=== PATIENT | female | born 1970 | race Caucasian/White ===

== ENCOUNTER → 2018-03-10 | Outpatient (CLI) | payer OTHER ==
[2014-11-01 08:44] VITALS: BMI 28.1
[~2018-03-10] MED LIST: AMI25 PO; ASCO-182 PO; CA C1TAB11 PO; CEP500 PO; CHOL100058 PO; FLAX340P2 PO; FLUT16SP20 NS; FOLI-68 PO; GARL1CAP15 PO; IBUP1TAB90 PO; KET10 PO; MONT10TA PO; MULT1TAB54 PO; OMEP10CA40 PO; PER PO; SULF-198 PO; TAMO20TA24 PO; VITA-195 PO; VITAMINS; [UNRECOGNIZED DRUG - OTHER]
[2018-03-10 17:56] LABS: PLATELET COUNT, AUTOMATED 292 K/uL (150-450)
== END ==
LOC: LAB 17:18
PROVIDERS: ATTEND Internal Medicine Medical Oncology
DX: C50.919 Malignant neoplasm of unspecified site of unspecified female breast (principal)
CPT/HCPCS: 36415; 82040; 82247; 82310; 82374; 82435; 82565; 82947; 84075; 84132; 84155; 84295; 84450; 84460; 84520; 85025

== ENCOUNTER 2018-03-16 13:55 | Outpatient (RCR) | payer OTHER ==
[2014-11-01 08:44] VITALS: Ht 162 cm; Wt 60.7 kg
[2018-01-05 09:32] VITALS: BP 111/70
--- NOTE | 2018-01-05 19:39 | ONCOLOGY HISTORY AND PHYSICAL ---
REFERRING PROVIDER Dr. Fontenot REASON FOR CONSULTATION Breast cancer. CHIEF COMPLAINT Patient feels well today with the exception of a burn from a heating pad over her reconstructed right breast. HISTORY OF PRESENT ILLNESS Ritu is a very pleasant 47-year-old female with a history of transvaginal hysterectomy performed in October 2014, as well as several other surgeries including vein stripping, cholecystectomy, and appendectomy. She presented in September to Dr. Lyon with concerns for a one week history of a palpable lump in the right breast. Subsequent breast imaging included mammogram which revealed an irregular spiculated mass with calcifications, and ultrasound that measured this lesion to be 1.3 cm. She subsequently underwent a biopsy of the right breast mass, which revealed grade 2 invasive ductal carcinoma. She subsequently underwent breast MRI that showed the right breast mass, no concern for lymphadenopathy, and no concerns in the contralateral breast. Her last mammogram prior to this had been performed in July of 2014. She was evaluated by Dr. Fontenot as well as Dr. Enciso, and the decision was made to move forward with bilateral mastectomies and implant reconstruction. Her surgery took place on November 27, at which time she underwent nipple-sparing mastectomy on both breasts. 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 The tumor itself was 1.6 cm. Invasive tumor and DCIS were 2 mm from the deep surgical margin, and 8 mm from the anterior surgical margin. There was evidence of biopsy site changes. One right axillary lymph node (sentinel lymph node) was benign. Prognostic markers have revealed positivity for the estrogen and progesterone receptors, and FISH analysis for HER2 was negative. The patient had been recovering well from her surgery, but unfortunately she reports that she had fallen asleep while using a heating pad on the right reconstructed breast, lateral chest, and she ended up having a skin burn that has required ongoing surgical attention. The patient is here today with her significant other to discuss the need for adjuvant therapies. She otherwise feels well. She relates her surgical history to me. She also states that she tends to be a very "holistic" person, and she is not particularly enthusiastic about taking any kind of medication. She has been doing some research on tamoxifen, as her ovaries were left at the time of her prior hysterectomy. She is concerned about many of the things that she has read about regarding tamoxifen, including the risk of developing cancer as a result of its use. PAST MEDICAL HISTORY 1. Severe gluten intolerance. 2. History of varicose veins. PAST SURGICAL HISTORY 1. Status post appendectomy in 1994. 2. Status post cholecystectomy in 1992. 3. Status post abdominal surgery in 2000 for bowel obstruction. 4. Status post total hysterectomy in 2014. She has both ovaries at this time. 5. Status post left knee surgery in 1984. CURRENT MEDICATIONS 1. Vitamin C. 2. Multivitamin. 3. Flaxseed. 4. Egg shells. ALLERGIES GLUTEN which causes abdominal cramping and diarrhea. She has no known allergies to medication. SOCIAL HISTORY Patient does not smoke cigarettes. There is no history of alcohol abuse. FAMILY HISTORY There is no known history of breast or ovarian cancer in the family. She reports that an uncle had been diagnosed with cancer, but that this was "environmental" in nature. VITAL SIGNS Temperature is 97.0, blood pressure 111/70, heart rate is 76, respirations 16, oxygen saturation is 93% on room air. Weight is 60.8 kg. PHYSICAL EXAMINATION GENERAL: Patient is alert and oriented times three, in no apparent distress sitting in the exam room chair. She is interactive and quite pleasant. HEENT: Exam reveals anicteric sclerae. NEUROLOGIC: Exam is grossly nonfocal and her gait is normal. EXTREMITIES: Exam reveals no edema, clubbing or cyanosis. There is no erythema or tenderness to palpation of the extremities. BREASTS: Exam is deferred today. LABORATORIES, IMAGING, AND PATHOLOGY Reviewed per the [facility] and outside records. ASSESSMENT AND PLAN Stage IA ER/ND positive invasive ductal carcinoma of the right breast. I had a lengthy and in-depth discussion with Ms. Ascencio today. We spent time discussing her presenting symptoms, as well as her surgical treatment to date. She is now status post bilateral mastectomies, and with the exception of her unfortunate recent burn due to a heating pad, she seems to be doing remarkably well. We discussed the nature of her breast cancer, including the fact that this is a grade 3 tumor, her prognostic markers, and her surgical staging. She appears to have stage IA disease. We began our discussion about adjuvant therapy by addressing her concerns about tamoxifen, as she has done quite a bit of research at home. We spent a great deal of time discussing the nature of the medication, its mechanism of action, and the rationale for its use in terms of reducing risk of breast cancer recurrence. We discussed that it could potentially increase the risk of thrombosis, as well as endometrial cancer. Because she has undergone hysterectomy, obviously the latter of these two would not be a concern, which we discussed in detail today. We also discussed side effects in addition to those noted above. We moved on to discuss that she would likely need to be on tamoxifen for a period of five years. Because she is particularly apprehensive about taking any kind of medicine, she would like to sit down with Diana Soares, nurse practitioner, for treatment education and learn more about the tamoxifen itself. I think this is quite reasonable. She does seem, at least later in our visit today, to have more of an open mind to considering adjuvant endocrine therapy. We moved on to review some data from [employer]. And we also discussed the potential utility of having her undergo an Oncotype DX study. We discussed again the rational for its use. With known lymph node negative with a high grade, but less than 2 cm primary, I do think that Oncotype DX testing would be reasonable. The patient has no intention whatsoever of receiving chemotherapy, and she reiterated this several times today. For this reason, we have decided together to hold off on Oncotype DX testing. Finally today, we reviewed the fact that she was diagnosed with this breast cancer at a young age, but she does not have a striking family history for cancer in general. I have recommended that she visit with a genetic counselor, and a referral will be made today. I will plan to see her back in about one month's time. Her next followup here will be with Diana Soares for her treatment education. I spent a total of 60 minutes of time face to face with the patient today, and 55 minutes of this was spent in direct counseling and coordination of care. SELWYN
[2018-01-11 16:03] VITALS: BP 130/77
--- NOTE | 2018-01-11 17:09 | ONC Progress Note - NP.Halsey ---
Patient History Date of Service Jan 11, 2018 Reason For Visit/HPI Patient is seen in the clinic today with her spouse for education prior to starting tamoxifen. Patient has picked up the prescription at the pharmacy and has it with her today. Patient is being treated for her breast cancer status post bi lateral reconstructive surgery. Patient presents today with eschar on the right breast status post use of a heating pad. In addition she shares that the left breast lateral to the nipple area has opened up and is weeping a creamy discolored discharge. She reports that this happened just today. She has taken a picture of both areas and has sent them via [employer] to Dr. Cook's office. She has not heard back from them at this time. I did step out of the exam room and called Dr. Mandujano office. They would like to see patient on at her scheduled time and plan to go and take out both implants and probably replace with an front sight attacher. Depending on the weeping wound they may start her on antibiotic therapy. I do not feel that patient has fever or chills and at this time needs to be on antibiotics so I did not start them. Did complete education regarding tamoxifen therapy. Written information regarding side effects was reviewed today. The main side effects include hot flashes, weight gain or weight loss, possible change in cholesterol fatigue, low risk for blood clots and low risk for a secondary cancer. It is recommended that patient have pelvic exams yearly. If she experienced any warm spot suggestive of a blood clot she is to be seen in the emergency room. Patient reports that she does smoke marijuana and questions if there is a contraindication. It does appear that they both use the same receptors and so the discussion of decreased efficacy of tamoxifen with the use of marijuana was reviewed. I did share that tamoxifen does not cause a decrease in her bone density and therefore there is no need to monitor at this time for osteoporosis. Patient has had prior varicose veins. She understands that this may slightly increase her risk of a clotting and verbalized what to look for. If she developed any type of a rash she understands that she would stop the medication and if an allergic reaction occurs that she will be seen in the emergency room but would start with Benadryl at home. Patient verbalizes understanding. Patient understands that she will take tamoxifen for a period of 5 years. Patient is postmenopausal and has had a hysterectomy so could qualify for other AI therapy. This was reviewed today. The education was completed however patient and spouse were both slightly distracted due to the breast situation. Patient did report that if she has further questions she will call. She will not start the tamoxifen until she completes her next surgical procedure. Problem List (1) ER+ ME+ carcinoma of breast (2) History of adenocarcinoma of breast (3) Acquired absence of bilateral breasts and nipples (4) Stage 1 carcinoma of breast, ER+ Oncology History Stage 1A ER/ME positive invasive ductal carcinoma of the right breast. Lymph node negative with a high grade, but less than 2 cm primary. Patient is status post bilateral mastectomy with breast reconstruction. This is been followed by a complication of burn on the right breast after use of a heating pad and opening of the left breast without known cause. Patient will probably have implants removed and expanders placed. Patient will start tamoxifen therapy 20 mg by mouth daily 5 years. Psychosocial History Social History Patient is Alcohol History She denies abuse Recreational Drug History She does use marijuana Medications and Allergies Reported Medications Tamoxifen Citrate (TAMOXIFEN CITRATE) 20 Mg Tablet, 20 MG PO DAILY 01/11/18 [Ground Egg Shells] No Conflict Check, 0.5 TSP DAILY for CALCIUM 01/05/18 Ibuprofen/Diphenhydramine Cit (ADVIL PM CAPLET) 1 Each Tablet, 1 EACH PO QHS 10/25/14 Multivitamin (MULTI-VITAMIN DAILY) 1 Each Tablet, 1 EACH PO 10/25/14 Ascorbic Acid (VITAMIN C) 500 Mg Tablet, 500 MG PO 10/25/14 Discontinued Reported Medications Flaxseed (FLAXSEED) 340 Gm Powder, 340 GM PO 01/05/18 Ca Carbonate/Vitamin D3/Vit K (VIACTIV SOFT CHEW TABLET) 1 Each Tab.chew, 1 EACH PO, TAB.CHEW 10/25/14 Cholecalciferol (Vitamin D3) (VITAMIN D) 1,000 Unit Capsule, 1000 UNIT PO, CAPSULE 10/25/14 Vitamin E Mixed (VITAMIN E) 1,000 Unit Capsule, 1000 UNIT PO, CAPSULE 10/25/14 Folic Acid (FOLIC ACID) 1 Mg Tablet, 1 MG PO QDAY, TAB 10/25/14 Garlic (GARLIC) 1 Each Capsule, 1 EACH PO, CAPSULE 10/25/14 Montelukast Sodium (SINGULAIR) 10 Mg Tablet, 1 TAB PO QDAY TAKE ONE TABLET BY MOUTH EVERY DAY 10/25/14 Fluticasone Propionate (FLONASE) 16 Gm [place].susp, 2 SPRAY NS DAILY 10/25/14 Discontinued Scripts Sulfamethoxazole/Trimet 800-160 Mg Tab (BACTRIM DS TABLET) 1 Each Tablet, 1 TAB PO Q12H Y for if home with catheter take, #10 CAPSULE Prov:JOSE MIGUEL SOUZA MD 11/01/14 Oxycodone/Acetaminophen (OXYCODONE/ACETAMINOPHEN 5MG/325 MG) 1 Tab Tab, 1-2 TAB PO Q4H Y for PAIN, #30 TAB 0 Refills Prov:JOSE MIGUEL SOUZA MD 11/01/14 Allergies: Coded Allergies: gluten (Verified Allergy, Severe, ABDOMINAL PAIN, VOMITING AND DIARRHEA, ) latex (Verified Allergy, Mild, HIVES, 10/31/14) Uncoded Allergies: OATS (Allergy, Severe, VOMITTING, DIARRHEA, ABD CRAMPING, 10/25/14) QUINOA (Allergy, Severe, VOMITING,DIARRHEA AND ABD CRAMPING, 10/25/14) ALL STRONG PAIN MEDS (Adverse Reaction, Mild, CAUSING SEVERE ABD PAIN, 09/04) PATIENT REPORTS REACTION TO INGREDIENTS IN ORAL PAIN PILLS. Review of System/Physical Exam Review of Systems All Systems Reviewed/Normal: Yes, Except as Noted Psychiatric: Anxiety Skin: Positive for Other (see above bilateral breast reconstruction with evidence of eschar on the right breast and opened wound with discolored weeping on the left breast) Physical Exam Vital Signs Temperature: 97.0 Pulse: 79 BP Systolic: 130 BP Diastolic: 77 Respiratory Rate: 16 O2 SAT: 94 O2 Delivery: Height (inches) 63.78 Weight lb: 164 Weight oz: Weight Kg (Jasvir): Pain: 4 ECOG Score: 0 General: Stable Psychiatric: Mood appears normal, Affect appears normal, Other (patient is alert and oriented 3.) Skin: Other (left breast has approximately 5 cm split open wound with creamy discharge, no erythema surrounding the area. Right breast with a 3 cm round eschar status post burn from a heating pad Hirsch to be well approximated and is not draining.) Assessment and Plan Assessment & Plan Stage IA ER/ME positive invasive ductal carcinoma of the right breast. Patient is status post bilateral mastectomy with breast reconstructive surgery. She presents today with a noted burn on the right breast from a heating pad and an open wound on the left breast. Dr. Cook's office was contacted and patient will have implants removed this and possible breast expanders placed allowing the area to heal. Education regarding tamoxifen use was reviewed today and written information was given to the patient for further review. Patient will not start tamoxifen until after her surgical procedure. I believe she was comfortable with the education and taking the medication with less reservation. She will take it for up to 5 years at this time. Patient will have a CBC and a CMP in 2 months when she follows with Dr. Gonzalez. I personally spent a total of 30 minutes. Of that 30 minutes was counseling/ coordination of patient's care. See my note above for details. CONNOR HUGHES TIPPING MACHINE OPERATOR [employer], ONC Jan 11, 2018 17:09
[~2018-03-16] VITALS: Ht 162 cm; Wt 60.7 kg
[2018-03-16 14:11] VITALS: BP 121/79
[2018-03-16] MEDS ORDERED: GARL1TAB9 PO (14:14)
[2018-03-16] MEDS ORDERED: VITA-175 PO (14:14)
--- NOTE | 2018-03-16 20:07 | ONCOLOGY FOLLOW UP NOTE ---
EVENT DATE: March 16, 2018 REASON FOR FOLLOWUP Stage IA ER positive right breast cancer. CHIEF COMPLAINT Fatigue. HISTORY OF PRESENT ILLNESS Ritu returns to clinic for a follow-up visit today. She reports that she is feeling pretty good today, all things considered. She relates her recent surgical activity. She had initially presented with concerns for a burn on her breast from a heating pad, and she had called to report that she had required surgical intervention. It turns out that she actually had a dehiscence and had to have her implants removed. These were replaced with tissue expanders, reportedly, but there again was reported dehiscence, and she opted to have the tissue expanders removed. She has no plans for further surgical intervention. Today, she does report some ongoing fatigue. She has had no significant pain. She denies shortness of breath and cough. Her appetite has been pretty good. She reports no abdominal pain or changes in bowels or bladder habits. She has not yet started tamoxifen, but she intends to do so soon. PAST MEDICAL HISTORY 1. Severe gluten intolerance. 2. History of varicose veins. PAST SURGICAL HISTORY 1. Status post appendectomy in 1994. 2. Status post cholecystectomy in 1992. 3. Status post abdominal surgery in 2000 for bowel obstruction. 4. Status post total hysterectomy in 2014. She has both ovaries at this time. 5. Status post left knee surgery in 1984. CURRENT MEDICATIONS 1. Vitamin C. 2. Multivitamin. 3. Flaxseed. 4. Egg shells. ALLERGIES GLUTEN which causes abdominal cramping and diarrhea. She has no known allergies to medication. SOCIAL HISTORY Patient does not smoke cigarettes. There is no history of alcohol abuse. FAMILY HISTORY There is no known history of breast or ovarian cancer in the family. She reports that an uncle had been diagnosed with cancer, but that this was "environmental" in nature. VITAL SIGNS Temperature is 97.4, blood pressure 121/79, heart rate is 68, respirations 16, oxygen saturation is 97% on room air. Weight is 60.7 kg. PHYSICAL EXAMINATION GENERAL: Patient is alert and oriented times three, in no apparent distress sitting in the exam room chair. She appears healthy. HEENT: Exam reveals anicteric sclerae. NEUROLOGIC: Exam is grossly nonfocal and her gait is normal. EXTREMITIES: Exam reveals no edema, clubbing or cyanosis. There is no erythema or tenderness to palpation of the extremities. SKIN: Exam reveals no concerning rash or lesion on cursory exam. LABORATORY STUDIES Reviewed per the [facility] record. ASSESSMENT AND PLAN Stage IA ER positive right breast cancer. I had a good visit with Ritu today. We reviewed her unfortunate surgical complications recently, and the fact that she is not planning on having any additional surgical intervention. She remains without breast implants or tissue expanders in place. We spent some time again today discussing tamoxifen, and its use in the adjuvant setting. She does have the prescription at home. As discussed, there is no a particular dalton to have her start with the medication, given recent events, but it would be chong for her to consider beginning the tamoxifen in the next month or so. She reports that she will likely begin in the next several days. We again reviewed some common side effects, and that I would want to see her back in clinic again in the next two months or so to see how she is doing in general, and to review her situation. She agrees to this plan. SELWYN
== END 2018-04-04 ==
LOC: ONC 13:55
PROVIDERS: ATTEND Internal Medicine Medical Oncology
DX: C50.911 Malignant neoplasm of unspecified site of right female breast (principal); T21.01XA Burn of unspecified degree of chest wall, initial encounter; Z17.0 Estrogen receptor positive status [ER+]; Z79.899 Other long term (current) drug therapy
CPT/HCPCS: 99202; 99212

== ENCOUNTER 2018-05-10 13:55 | Outpatient (RCR) | payer OTHER ==
[2014-11-01 08:44] VITALS: Wt 61.9 kg
[~2018-05-10 13:55] MED LIST changes: +GARL1TAB9 PO; +VITA-175 PO
[2018-05-10 14:03] VITALS: BP 134/78
[2018-05-10 14:45] LABS: PLATELET COUNT, AUTOMATED 248 K/uL (150-450)
--- NOTE | 2018-05-11 09:34 | ONCOLOGY FOLLOW UP NOTE ---
EVENT DATE: May 10, 2018 REASON FOR FOLLOWUP Stage 1A ER positive right breast cancer. CHIEF COMPLAINT Hot flashes. HISTORY OF PRESENT ILLNESS Ritu returns to the clinic for a followup visit today. She states that she is feeling pretty good in general. She started taking tamoxifen daily on March 16. She has noticed some very modest flashes that pop up from time to time but these have not been particularly problematic. She is sleeping well. She reports no new pain. She has had no skin changes and she has noticed no lumps or bumps under the arms. She has had a pretty good appetite. She has has no changes in bowel habits. 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 This is going well. REVIEW OF SYSTEMS Otherwise negative and all systems were reviewed. PAST MEDICAL HISTORY 1. Severe gluten intolerance. 2. History of varicose veins. PAST SURGICAL HISTORY 1. Status post appendectomy in 1994. 2. Status post cholecystectomy in 1992. 3. Status post abdominal surgery in 2000 for bowel obstruction. 4. Status post total hysterectomy in 2014. She has both ovaries at this time. 5. Status post left knee surgery in 1984. CURRENT MEDICATIONS 1. Vitamin C. 2. Multivitamin. 3. Flaxseed. 4. Egg shells. ALLERGIES GLUTEN which causes abdominal cramping and diarrhea. She has no known allergies to medication. SOCIAL HISTORY Patient does not smoke cigarettes. There is no history of alcohol abuse. FAMILY HISTORY There is no known history of breast or ovarian cancer in the family. She reports that an uncle had been diagnosed with cancer, but that this was "environmental" in nature. PHYSICAL EXAM VITAL SIGNS: Temperature 97.6, blood pressure 134/78, heart rate is 67, respirations 16, oxygen saturation is 97% on room air, weight is 61.9 kg. GENERAL: Patient is alert and oriented x3, no apparent distress, sitting in the exam room chair. She appears healthy. She is in good spirits and quite interactive. HEENT: Anicteric sclerae. NEUROLOGIC: Grossly nonfocal and gait is normal. LABORATORY STUDIES Laboratory studies from February including CBC and CMP were reviewed. These were unremarkable. ASSESSMENT AND PLAN Stage 1A ER positive right breast cancer. Ritu is doing remarkably well. She has started on adjuvant tamoxifen and has now taken about two months' worth of therapy. She has had minimal toxicity from the tamoxifen itself with hot flashes being the only notable side effect. These have been quite tolerable. We spent time discussing our strategy for ongoing followup. I would like to see her quarterly for the coming year to see how she is doing with the tamoxifen. She does have another surgical visit scheduled in December. She plans to have a breast exam at that time. We will continue breast exams here from that point forward. She had questions about her prior labs and these were reviewed with her today. She also had questions about cancer specific laboratory studies in the future. I have recommended against checking routine breast cancer tumor markers in the adjuvant setting and we discussed the rationale for this recommendation. She understands. I will see her back in three months after repeat labs or sooner if there are questions or concerns. SELWYN
== END 2018-05-11 11:20 | disposition home or self-care (01) ==
LOC: ONC 13:55
PROVIDERS: ATTEND Internal Medicine Medical Oncology
DX: C50.911 Malignant neoplasm of unspecified site of right female breast (principal); Z17.0 Estrogen receptor positive status [ER+]; Z79.810 Long term (current) use of selective estrogen receptor modulators (SERMs)
CPT/HCPCS: 82040; 82247; 82310; 82374; 82435; 82565; 82947; 84075; 84132; 84155; 84295; 84450; 84460; 84520; 85025; 99212

== ENCOUNTER → 2018-07-20 | Outpatient (CLI) | payer OTHER ==
[2014-11-01 08:44] VITALS: BMI 28.1
[2018-07-20 17:58] LABS: PLATELET COUNT, AUTOMATED 317 K/uL (150-450)
== END ==
LOC: LAB 17:25
PROVIDERS: ATTEND Internal Medicine Medical Oncology
DX: C50.919 Malignant neoplasm of unspecified site of unspecified female breast (principal)
CPT/HCPCS: 36415; 82040; 82247; 82310; 82374; 82435; 82565; 82947; 84075; 84132; 84155; 84295; 84450; 84460; 84520; 85025

== ENCOUNTER 2018-07-27 08:44 | Outpatient (RCR) | payer OTHER ==
[2014-11-01 08:44] VITALS: Wt 62.0 kg
[2018-07-27 13:44] VITALS: BP 141/75
--- NOTE | 2018-07-27 19:30 | ONCOLOGY FOLLOW UP NOTE ---
EVENT DATE: July 27, 2018 REASON FOR FOLLOWUP Stage 1A ER positive right breast cancer, ongoing adjuvant tamoxifen. CHIEF COMPLAINT Pelvic pressure. HISTORY OF PRESENT ILLNESS Ritu returns to the clinic for a followup visit today. She reports that things have been going pretty well for the most part. She is greatly enjoying her job at the [employer]. She and her have been very happy about their improved sexual health recently and they have been having fairly frequent intercourse. She is concerned because she has developed some pelvic pressure. She also notes a small amount of blood from the vaginal area and she does not believe that this was hematuria. She has had no severe pain during sexual intercourse. She continues on tamoxifen. She has had some hot flashes but these have been less than problematic. Her energy level is good. Her appetite is good and her weight has been stable. She is getting regular physical activity. She has noticed no skin changes. REVIEW OF SYSTEMS Otherwise negative and all systems were reviewed. PAST MEDICAL HISTORY 1. Severe gluten intolerance. 2. History of varicose veins. PAST SURGICAL HISTORY 1. Status post appendectomy in 1994. 2. Status post cholecystectomy in 1992. 3. Status post abdominal surgery in 2000 for bowel obstruction. 4. Status post total hysterectomy in 2014. She has both ovaries at this time. 5. Status post left knee surgery in 1984. CURRENT MEDICATIONS 1. Vitamin C. 2. Multivitamin. 3. Flaxseed. 4. Egg shells. ALLERGIES GLUTEN which causes abdominal cramping and diarrhea. She has no known allergies to medication. SOCIAL HISTORY Patient does not smoke cigarettes. There is no history of alcohol abuse. FAMILY HISTORY There is no known history of breast or ovarian cancer in the family. She reports that an uncle had been diagnosed with cancer, but that this was "environmental" in nature. VITAL SIGNS: Temperature 98.7, blood pressure 141/75, pulse is 88, respirations 16, oxygen saturation is 97% on room air, weight is 62 kg. PHYSICAL EXAM GENERAL: Patient is alert and oriented x3, no apparent distress, sitting in the exam room chair. She appears healthy. She is in good spirits and quite interactive. HEENT: Anicteric sclerae. NEUROLOGIC: Grossly nonfocal and gait is normal. EXTREMITIES: No edema, clubbing or cyanosis. There is no erythema or tenderness to palpation. SKIN: No concerning lesions on cursory exam. LABORATORY STUDIES Laboratory studies are reviewed per the doo record. Several days ago, she did have a slightly elevated white count with neutrophil predominance but her chemistries are unremarkable. IMAGING None today. ASSESSMENT AND PLAN Stage 1A ER positive right breast cancer. Ritu continues to do well on tamoxifen. We spent time discussing her experience with side effects, which seem to be minimal. She has had occasional hot flashes but these have been quite tolerable. We also discussed pelvic pressure and some urinary hesitancy that had been happening over the past few days as well as the small amount of blood she had noticed. We reviewed that she had previously undergone hysterectomy in 2014 so this negates any worry for endometrial cancer related to tamoxifen use. With that said, she and her significant other have been having fairly frequent sexual intercourse, although she has not had any excruciating pain during intercourse itself. I have recommended that she have a urinalysis with culture performed today and I have also recommended that she reach out as soon as possible to Dr. Lyon in gynecology to discuss these symptoms further. In any case, it does seem that she has been doing well otherwise. I will plan to see her back for followup in three months' time or sooner if there are questions or concerns. The patient had several additional questions for me today and I believe I answered all of her questions to her satisfaction. SELWYN
== END 2018-10-25 ==
LOC: ONC 08:44
PROVIDERS: ATTEND Internal Medicine Medical Oncology
DX: C50.911 Malignant neoplasm of unspecified site of right female breast (principal); Z17.0 Estrogen receptor positive status [ER+]; Z79.810 Long term (current) use of selective estrogen receptor modulators (SERMs)
CPT/HCPCS: 81001; 87077; 87088; 87186; 99212

== ENCOUNTER → 2018-10-26 | Outpatient (CLI) | payer OTHER ==
[2014-11-01 08:44] VITALS: BMI 28.1
[2018-10-26 17:39] LABS: PLATELET COUNT, AUTOMATED 318 K/uL (150-450)
== END ==
LOC: LAB 17:17
PROVIDERS: ATTEND Internal Medicine Medical Oncology
DX: C50.919 Malignant neoplasm of unspecified site of unspecified female breast (principal)
CPT/HCPCS: 36415; 82040; 82247; 82310; 82374; 82435; 82565; 82947; 84075; 84132; 84155; 84295; 84450; 84460; 84520; 85025

== ENCOUNTER → 2018-11-28 | Outpatient (CLI) | payer OTHER ==
[2014-11-01 08:44] VITALS: BMI 28.1
--- NOTE | 2018-11-28 12:16 | RADIOLOGY IMAGING REPORT ---
FACILITY: [facility] PATIENT NAME: Ritu Ascencio : 1970 MR: [id number] V: [id number] EXAM DATE: ORDERING PHYSICIAN: DORINDA LEONG TECHNOLOGIST: Location: [facility] Patient: Ritu Ascencio : 1970 Visit/Account:[id number] Date of Sevice: 11/28/2018 Technique: SHOULDER MIN 2 VIEWS RIGHT HISTORY: Right shoulder pain, no history of trauma Comparison studies: None FINDINGS: There is no acute fracture. The alignment of the right shoulder is maintained. Soft tissu es are unremarkable. IMPRESSION: 1. Normal right shoulder radiographs. Report Dictated By: Fercho Baez DO at 11/28/2018 12:10 PM Report E-Signed By: Fercho Baez DO at 11/28/2018 12:11 PM WSN:[id number]
== END ==
LOC: RAD 11:38
PROVIDERS: ATTEND Nurse Practitioner Family
DX: M25.511 Pain in right shoulder (principal)

== ENCOUNTER 2019-05-17 12:57 | Outpatient (RCR) | payer OTHER ==
[2014-11-01 08:44] VITALS: Wt 62.8 kg
[2019-05-17 13:13] VITALS: BP 128/81
[2019-05-17 13:18] LABS: PLATELET COUNT, AUTOMATED 285 K/uL (150-450)
--- NOTE | 2019-05-19 08:08 | ONCOLOGY FOLLOW UP NOTE ---
EVENT DATE: May 17, 2019 REASON FOR FOLLOWUP Stage IA, ER-positive right breast cancer, ongoing adjuvant tamoxifen. CHIEF COMPLAINT The patient feels well. HISTORY OF PRESENT ILLNESS Ritu returns to clinic for a followup visit today. She is accompanied by her . She reports that for the most part she has been doing fairly well. Most days are good. There are some days, however, where she feels like she spirals down, becomes quite depressed and has a difficult time coming out of it. This has happened a few times since our last visit. She does have some ongoing stress at work. She previously had noted a rash over her right chest but this has resolved. She has noticed no other skin changes. She reports no lumps or bumps under the arms. Her appetite is fair and her weight has been stable. She has not been exercising as much. She reports no abdominal pain, changes in urinary or bowel habits. REVIEW OF SYSTEMS Otherwise negative and all systems reviewed. PAST MEDICAL HISTORY 1. Severe GLUTEN intolerance. 2. History of varicose veins. PAST SURGICAL HISTORY 1. Status post appendectomy in 1994. 2. Status post cholecystectomy in 1992. 3. Status post abdominal surgery in 2000 for bowel obstruction. 4. Status post total hysterectomy in 2014. She has both ovaries at this time. 5. Status post left knee surgery in 1984. CURRENT MEDICATIONS 1. Vitamin C. 2. Multivitamin. 3. Flaxseed. 4. Egg shells. 5. Tamoxifen 20 mg p.o. daily. ALLERGIES GLUTEN which causes abdominal cramping and diarrhea. She has no known allergies to medication. SOCIAL HISTORY Patient does not smoke cigarettes. There is no history of alcohol abuse. FAMILY HISTORY There is no known history of breast or ovarian cancer in the family. She reports that an uncle had been diagnosed with cancer, but that this was "environmental" in nature. VITAL SIGNS Temperature 97.6, blood pressure 124/81, heart rate 79, respirations 16, oxygen saturation 98% on room air, weight 62.8 kg. PHYSICAL EXAMINATION GENERAL: Patient is alert and oriented x3, in no apparent distress, sitting in the exam room chair. She appears healthy. She is interactive and pleasant. HEENT: Anicteric sclerae. NEUROLOGIC: Grossly nonfocal. Gait is normal. SKIN: No concerning rash or lesion, specifically over the right chest. EXTREMITIES: No edema, clubbing or cyanosis. There is no erythema or tenderness to palpation. LABORATORY STUDIES Reviewed per the [facility] record. ASSESSMENT AND PLAN Stage 1A estrogen receptor positive right breast cancer. Ritu continues to do remarkably well with adjuvant tamoxifen. We spent time today reviewing her current symptoms. These include dysphoric mood at times as well as fatigue. Most days are good but we did discuss how we could potentially make these days of severe depression better. I have offered for her to see a counselor. She is not particularly interested. At this time, she is not concerned about things getting worse, but I have employed her to call us if that is indeed the case. She agrees to do so. For now, our plan will be for her to continue with adjuvant tamoxifen. I have recommended that she get back into exercising regularly. We discussed the importance of healthful nutrition. All questions answered today. I will plan to see her back in six months or sooner if there are questions or concerns. SELWYN
== END 2019-06-07 11:08 | disposition home or self-care (01) ==
LOC: ONC 12:57
PROVIDERS: ATTEND Internal Medicine Medical Oncology
DX: C50.911 Malignant neoplasm of unspecified site of right female breast (principal); Z17.0 Estrogen receptor positive status [ER+]; Z79.810 Long term (current) use of selective estrogen receptor modulators (SERMs)
CPT/HCPCS: 36415; 82040; 82247; 82310; 82374; 82435; 82565; 82947; 84075; 84132; 84155; 84295; 84450; 84460; 84520; 85025; 99212